=== PATIENT | female | born 1950 | race Caucasian/White ===

== ENCOUNTER 2017-07-12 09:09 | Inpatient (IN) | payer MEDICARE ==
[~2017-07-12] VITALS: Ht 162.6 cm; Wt 112.1 kg
[2017-07-12 10:28] LABS: HEMOGLOBIN 11.8 gm/dl (12.3-15.3); RED BLOOD COUNT 4.35 M/UL (4.00-5.10); WHITE BLOOD COUNT 7.2 K/UL (4.5-11.0)
[2017-07-12] MEDS ORDERED: CELEXA20 MG PO (18:20)
[2017-07-12] MEDS ORDERED: NEURONTIN 300300 MG PO (18:21)
[2017-07-12] MEDS ORDERED: NORVASC 5 MG TAB5 MG PO (18:21)
[2017-07-12] MEDS ORDERED: HYDROCHLOROTH12.5 M1 PO (18:23)
[2017-07-13 06:23] LABS: HEMOGLOBIN 11.6 gm/dl (12.3-15.3); RED BLOOD COUNT 4.39 M/UL (4.00-5.10)
[2017-07-16] MEDS ORDERED: VITAMIN B-12100 MC1 PO (17:42)
[2017-07-16] MEDS ORDERED: TOPROL XL50 MG PO (17:42)
[2017-07-16] MEDS ORDERED: PRILOSEC OTC20 MG PO (17:43)
[2017-07-16] MEDS ORDERED: LEVOTHYROXINE50 MCG PO (17:44)
[2017-07-16] MEDS ORDERED: COZAAR50 MG PO (17:44)
[2017-07-16] MEDS ORDERED: TAMOXIFEN CITRA20 MG PO (17:45)
[2017-07-16] MEDS ORDERED: HUMALOG100 UNIT/2 SQ (17:46)
[2017-07-16] MEDS ORDERED: HYGROTON TAB 2525 MG PO (17:46)
[2017-07-16] MEDS ORDERED: SPIRONOLACTONE25 MG PO (17:47)
[2017-07-16] MEDS ORDERED: LIPITOR TAB 2020 MG PO (17:57)
== END 2017-07-16 19:47 | disposition home or self-care (01) | DRG 186 ==
LOC: ER1 09:09 → ZEROF 12:14 → M/S 12:14
PROVIDERS: Emergency Medicine; Internal Medicine; ADMIT Internal Medicine
DX: J90 Pleural effusion, not elsewhere classified (principal); J96.01 Acute respiratory failure with hypoxia; J18.9 Pneumonia, unspecified organism; N17.9 Acute kidney failure, unspecified; J98.11 Atelectasis; E11.9 Type 2 diabetes mellitus without complications; I10 Essential (primary) hypertension; Z79.4 Long term (current) use of insulin; Z96.41 Presence of insulin pump (external) (internal); I12.9 Hypertensive chronic kidney disease with stage 1 through stage 4 chronic kidney disease, or unspecified chronic kidney disease; E11.22 Type 2 diabetes mellitus with diabetic chronic kidney disease; N18.3 Chronic kidney disease, stage 3 (moderate); D64.9 Anemia, unspecified; Z66 Do not resuscitate; C50.912 Malignant neoplasm of unspecified site of left female breast
CPT/HCPCS: ECHO; 36415; 71020; 80048; 80053; 81001; 82150; 82550; 82553; 82803; 82962; 83690; 83735; 83874; 83880; 84484; 85025; 85610; 85730; 87040; 93005; 93306; J0456; J0696; J1650; J1940; J2405; J2550; J7030; J7050; Q9963